=== PATIENT | male | born 2000 | race Caucasian/White ===

== ENCOUNTER 2021-01-21 08:47 | Emergency (ER) | payer OTHER, BC ==
[2021-01-21] MEDS ORDERED: Fentanyl 100 MCG/2 ML VIAL ONE ×2 (09:01→11:27)
[2021-01-21] MEDS ORDERED: Ondansetron PF 4 MG/2 ML Vial ONE (09:25)
[2021-01-21] MEDS ORDERED: Lidocaine 1% (PF) 30 ML VIAL ONE (10:24)
== END 2021-01-21 11:45 | disposition home or self-care (01) ==
LOC: ERS 08:47
DX: S52.571A Other intraarticular fracture of lower end of right radius, initial encounter for closed fracture (principal); S52.551A Other extraarticular fracture of lower end of right radius, initial encounter for closed fracture; S52.611A Displaced fracture of right ulna styloid process, initial encounter for closed fracture; V23.4XXA Motorcycle driver injured in collision with car, pick-up truck or van in traffic accident, initial encounter
CPT/HCPCS: 29125; 70450; 96374; 96375; 96376; J2001; J2405; J3010